=== PATIENT | male | born 1955 | race African-American/Black ===

== ENCOUNTER 2022-11-16 11:47 | Emergency (ER) | payer MEDICARE, OTHER ==
[~2022-11-16] VITALS: Ht 165.1 cm; Wt 61.0 kg
[2022-11-16 11:59] VITALS: BP 125/85
== END 2022-11-16 12:08 | disposition left against medical advice (07) ==
LOC: EDBD 11:47 → ER 11:47
DX: R07.89 Other chest pain (principal); M19.90 Unspecified osteoarthritis, unspecified site; E78.5 Hyperlipidemia, unspecified; I10 Essential (primary) hypertension; Z96.652 Presence of left artificial knee joint; V89.2XXA Person injured in unspecified motor-vehicle accident, traffic, initial encounter; Y93.I9 Activity, other involving external motion; Y92.89 Other specified places as the place of occurrence of the external cause; Y99.8 Other external cause status
CPT/HCPCS: 93005